=== PATIENT | male | born 1995 | race African-American/Black ===

== ENCOUNTER 2022-10-18 03:18 | Emergency (ER) | payer OTHER ==
[~2022-10-18] VITALS: Ht 172.7 cm; Wt 92.2 kg
[2022-10-18 03:25] VITALS: BP 123/73
[2022-10-18] MEDS ORDERED: ACETAMINOPHEN TAB 650MG DOSE (2X325MG) PO ONE (04:40)
[2022-10-18] MEDS ORDERED: ONDANSETRON 4MG ORAL DISINTEGRATING TAB PO ONE (07:05)
[2022-10-18] MEDS ORDERED: SUCRALFATE SUSP 1GM/10ML UD PO ONE (07:05)
[2022-10-18] MEDS ORDERED: ONDA4TAB6 PO (08:02)
== END 2022-10-18 08:16 | disposition home or self-care (01) ==
LOC: EDBD 03:18 → M ED 03:18
DX: A05.9 Bacterial foodborne intoxication, unspecified (principal)

== ENCOUNTER 2022-11-16 15:54 | Emergency (ER) | payer OTHER ==
[~2022-11-16] VITALS: Ht 172.7 cm; Wt 96.4 kg
[~2022-11-16 15:54] MED LIST: ONDA4TAB6 PO
[2022-11-16] MEDS ORDERED: KETOROLAC 30 MG/ML 1ML VIAL IV ONE (16:30)
[2022-11-16] MEDS ORDERED: NS 1,000 ML IV ONE (16:30)
[2022-11-16] MEDS ORDERED: ONDANSETRON 4MG 2ML VIAL IV ONE (16:30)
[2022-11-16] MEDS ORDERED: ISOVUE-370 76% 100ML VIAL As Ordered ONE ×2 (17:22→17:55)
[2022-11-16 17:26] LABS: BASO # 0.1 10^3/uL (0.0-0.2); BASO % 0.8 % (0.0-1.0); EOS # 0.5 10^3/uL (0.0-0.5); EOS % 6.2 % (0.0-3.0); HEMATOCRIT 44.4 % (42.0-52.0); HEMOGLOBIN 14.5 g/dl (13.5-17.5); LYMPH # 2.4 10^3/uL (1.5-5.0); LYMPH % 28.2 % (24.0-44.0); MEAN CORPUSCULAR HEMOGLOBIN 30.8 pg (27.0-33.0); MEAN CORPUSCULAR HGB CONC 32.7 g/dl (32.0-36.5); MEAN CORPUSCULAR VOLUME 94.3 fl (80.0-96.0); MONO # 0.6 10^3/uL (0.0-0.8); MONO % 6.7 % (2.0-8.0); NEUTROPHILS # 4.9 10^3/uL (1.5-8.5); NEUTROPHILS % 57.7 % (36.0-66.0); PLATELET COUNT, AUTOMATED 222 10^3/uL (150-450); RED BLOOD COUNT 4.71 10^6/uL (4.30-6.10); WHITE BLOOD COUNT 8.5 10^3/uL (4.0-10.0)
[2022-11-16 17:46] LABS: ALBUMIN 4.1 G/DL (3.2-5.2); BILIRUBIN,DIRECT 0.3 MG/DL (<0.4); BILIRUBIN,TOTAL 0.7 MG/DL (0.3-1.2)
[2022-11-16 18:04] LABS: RSV AMPLIFICATION NEGATIVE (NEGATIVE)
[2022-11-16 18:30] VITALS: BP 120/74
[2022-11-16] MEDS ORDERED: ONDA4TAB6 PO (19:58)
== END 2022-11-16 20:14 | disposition home or self-care (01) ==
LOC: M ED 15:54
DX: A09 Infectious gastroenteritis and colitis, unspecified (principal)
CPT/HCPCS: 74177; 80047; 80076; 81001; 83605; 83690; 85025; 87507; 87631; 96374; 96375; 99284; J1885; J2405; Q9967